=== PATIENT | male | born 1970 | race Caucasian/White ===

== ENCOUNTER 2017-01-03 10:05 | Emergency (ER) | payer SELFPAY ==
[2017-01-03 10:12] VITALS: BP 133/72; PULSE 88; RESP 14; TEMP 98.4; O2SAT 98
--- NOTE | 2017-01-03 10:36 | PD ---
HPI . right knee pain Chief Complaint: Pain: Acute or Chronic Time Seen by Provider: 10:36 Travel History International Travel<30 days: No Contact w/Intl Traveler<30days: No Traveled to known affect area: No History of Present Illness HPI 46-year-old male here with complaints of right knee pain since Wednesday. Patient does not recall any exact mechanism of injury, however reports that his right knee all of a sudden started hurting. He reports some swelling and pain on the medial aspect of the knee. He is able to walk, but tells me that it is very painful. He has tried some ibuprofen, and has not had much relief. [facility] Past Medical History Medical History: Denies Significant Hx Social History Alcohol Use: Yes Tobacco Use: No Substance Use: No Allergies-Medications (Allergen,Severity, Reaction): Coded Allergies: No Known Allergies (Unverified , 01/03/17) Reported Meds & Prescriptions Reported Meds & Active Scripts Active Prednisone 20 Mg Tab 20 Mg PO DAILY 5 Days Review of Systems General / Constitutional: No: Fever Eyes: No: Visual changes HENT: No: Headaches Cardiovascular: No: Chest Pain or Discomfort Respiratory: No: Shortness of Breath Gastrointestinal: No: Abdominal Pain Genitourinary: No: Dysuria Musculoskeletal: Positive: Pain (right knee pain) Skin: No Rash Neurologic: No: Weakness Psychiatric: No: Depression Endocrine: No: Polydipsia Hematologic/Lymphatic: No: Easy Bruising Physical Exam Narrative GENERAL: AAO x 3, no acute distress, Well-nourished, well-developed patient. SKIN: Warm and dry. No visible rashes or bruising. HEAD: Normocephalic and atraumatic. EYES: No scleral icterus. No injection or drainage. ENT: No nasal drainage noted. Mucous membranes pink. Airway patent. NECK: Supple, trachea midline. No JVD. CARDIOVASCULAR: Regular rate and rhythm without murmurs, gallops, or rubs. RESPIRATORY: Breath sounds equal bilaterally. No accessory muscle use. No rhonchi or rales. GASTROINTESTINAL: Abdomen soft, non-tender, nondistended. EXTREMITIES: Right knee with small effusion, tender to touch on the medial aspect. Sanford and Yanna is negative. Patient has ability to extend and flex, however elicits pain. BACK: No obvious deformity. NEURO: CN II-12 intact, PSYCH: AAO x 3, normal affect. Data Data Last Documented VS Vital Signs Date Time Temp Pulse Resp B/P (MAP) Pulse Ox O2 Delivery O2 Flow Rate FiO2 01/03/17 10:12 98.4 88 14 133/72 (92) 98 Orders Orders Knee, Complete (4vws) (01/03/17 10:42) Ketorolac Inj (Toradol Inj) (01/03/17 10:45) Jayson Bandage (01/03/17 11:32) Crutches (01/03/17 11:32) MDM Medical Decision Making Medical Screen Exam Complete: Yes Emergency Medical Condition: Yes Medical Record Reviewed: Yes Differential Diagnosis Internal derangement of the knee, less likely need fracture, knee sprain Narrative Course 46-year-old male here with complaints of right knee pain. On exam it looks like patient may have somehow sprained his knee or had some type of injury. He does not recall it mechanism of injury. He does tell me that he had a few beers over the weekend, but denies being intoxicated. X-ray ordered to rule out any type of acute bony injury. I do not suspect I will find any. I do not suspect any DVT or septic arthritis. There is no significant erythema or abnormalities of this joint. Toradol given for pain relief. I'll provide him with some crutches to offload off the extremity. Ultimately he will need to follow-up with his primary care provider and may benefit from an orthopedic consultation if his symptoms persist. CARLEY recommended. Jayson wrap and crutches. I discussed my findings with the patient. I recommend steroids and off loading for a few days. F/U with PCP. Patient verbalized understanding of instructions, questions were answered, and thanked me for their care. I advised them if their condition worsens, please return to the nearest emergency room for further care. Diagnosis Primary Impression: Right knee pain Qualified Codes: M25.561 - Pain in right knee Additional Impression: Joint effusion of knee Qualified Codes: M25.461 - Effusion, right knee Referrals: Orthopedist Patient Instructions: General Instructions Additional Instructions: Please return to emergency department if your symptoms return or worsen. Follow up with your primary care provider. Take medications as prescribed. Rest the affected area as much as possible. Ice this area for 15-20 minutes at a time. You can do this every hour or as much as tolerated. Keep this area compressed (jayson bandage) as tolerated. Elevate this area. Use ibuprofen as needed for pain and inflammation. Med/Other Pt SpecificInfo: Prescription(s) given Scripts Prednisone (Prednisone) 20 Mg Tab 20 MG PO DAILY for 5 Days, TAB 0 Refills Prov: Olman Quan MD 01/03/17 Disposition: 01 DISCHARGE HOME Condition: Stable Julita Simon Jan 03, 2017 10:36
[2017-01-03] MEDS ORDERED: KETOROLAC TROMETHAMINE 60 MG/2 ML (IM) VIAL IM ONE (10:45)
--- NOTE | 2017-01-03 11:02 | RADRPT ---
EXAM DATE/TIME: 01/03/2017 10:54 [facility] COMPARISON: No previous studies available for comparison. INDICATIONS : Pain, swelling, difficult bending and weight bearing. MEDICAL HISTORY : None. SURGICAL HISTORY : None. ENCOUNTER: Initial ACUITY: 3 days PAIN SCORE: 10/10 LOCATION: Right knee. FINDINGS: Bone density is normal. No fractures are seen. Small knee joint effusion. Joint space widths are inta ct. CONCLUSION: Small knee joint effusion. Denzel Nunez MD on January 03, 2017 at 11:00 Board Certified Radiologist. This report was verified electronically.
[2017-01-03] MEDS ORDERED: PRED20 PO (11:32)
== END 2017-01-03 12:01 | disposition home or self-care (01) ==
LOC: NEPD 10:05
DX: M25.561 Pain in right knee (principal); M25.461 Effusion, right knee
CPT/HCPCS: 73564; 96372; 99284; E0113; J1885